=== PATIENT | male | born 1970 | race American Indian/Alaskan Native ===

== ENCOUNTER 2016-09-22 20:38 | Emergency (ER) | payer BC, OTHER ==
[2016-09-22 20:53] VITALS: BMI 31.1
[2016-09-22 20:56] VITALS: BP 136/81; PULSE 74; TEMP 98.2
--- NOTE | 2016-09-22 21:24 | ED PDOC ---
Arrival/HPI - General Historian: Patient <Akbar Trammellnay - Last Filed: 09/22/16 21:19> <Zuhair Bear - Last Filed: 09/22/16 23:20> - General Chief Complaint: ENT Problem Time Seen by Provider: 09/22/16 21:00 - History of Present Illness Narrative History of Present Illness (Text): 09/22/16 21:19 46yo M with no PMHx here for evaluation of sore throat. Patient states that he was fine last night when he went to sleep. Woke up at 3AM this morning with throat pain, worse with swallowing. He is able to speak in full clear sentences. States that he has never had similar symptoms in the past. Today, he has taken ibuprofen and Advil PM with no relief. Pain has been gradually getting worse over the duration of today. Denies F/C. No N/V/D. No abd pain. No headaches. Denies any chest pain, no shortness of breath. States that his has similar symptoms however, the symptoms are not as severe as his. PMHx: denies PSHx: denies Family Hx: denies Social Hx: Denies Tobacco use, denies illicit drugs. Social ETOH use. Works as a health safety engineer for the [employer] (Shaan Trammell) Past Medical History - Provider Review Nursing Documentation Reviewed: Yes - Infectious Disease Hx of Infectious Diseases: None - Psychiatric Hx Substance Use: No - Anesthesia Hx Anesthesia: No <Shaan Trammell - Last Filed: 09/22/16 21:19> Family/Social History - Physician Review Nursing Documentation Reviewed: Yes Family/Social History: No Known Family HX Smoking Status: Never Smoked Hx Alcohol Use: Yes Frequency of alcohol use: Socially Hx Substance Use: No <Shaan Trammell - Last Filed: 09/22/16 21:19> Allergies/Home Meds <Shaan Trammell - Last Filed: 09/22/16 21:19> <Zuhair Bear - Last Filed: 09/22/16 23:20> Allergies/Adverse Reactions: Allergies No Known Allergies Allergy (Verified 09/22/16 20:53) Review of Systems - Physician Review All systems were reviewed & negative as marked: Yes - Review of Systems Constitutional: absent: Fevers Respiratory: absent: SOB, Cough, Sputum, Wheezing <Shaan Trammell - Last Filed: 09/22/16 21:19> Physical Exam Vital Signs Reviewed: Yes Temperature: Afebrile Blood Pressure: Normal Pulse: Regular Respiratory Rate: Normal Appearance: Positive for: Well-Appearing Mental Status: Positive for: Alert and Oriented X 3 - Systems Exam Head: Present: Atraumatic, Normocephalic Extroacular Muscles: Present: EOMI Conjunctiva: Present: Normal Ears: Present: Normal, NORMAL TM, Normal Canal. No: Erythema Mouth: Present: Moist Mucous Membranes Pharnyx: Present: ERYTHEMA. No: EXUDATE, TONSILS ENLARGED, Peritonsilar Swelling, Uvular Deviation, Muffled/Hoarse Voice, Strider Nose (Internal): No: Normal Inspection Respiratory/Chest: Present: Clear to Auscultation, Good Air Exchange. No: Respiratory Distress, Accessory Muscle Use, Wheezes, Rhonchi Cardiovascular: Present: Normal S1, S2 Abdomen: No: Tenderness, Distention, Peritoneal Signs, Rebound, Guarding Upper Extremity: Present: Normal Inspection. No: Edema Lower Extremity: Present: Normal Inspection. No: Edema Neurological: Present: GCS=15 Skin: Present: Warm, Dry, Normal Color. No: Rashes Psychiatric: Present: Alert, Oriented x 3 <Akbar Trammellnay - Last Filed: 09/22/16 21:19> Medical Decision Making <Shaan Trammell - Last Filed: 09/22/16 21:19> <Zuhair Bear - Last Filed: 09/22/16 23:20> ED Course and Treatment: 09/22/16 21:27 46yo M with no PMHx here for Pharyngitis. Plan: - Decadron IM - Azithromax Rx - Dispo home (Shaan Trammell) Patient Seen With Resident: In agreement with resident note which contains more details about the patient. Patient was seen and evaluated with resident. Came up with plan and treatment together. Patient is a 46 year old male who presents to the emergency department for evaluation of sore throat discomfort. States he took Ibuprofen and Advil for minimal symptomatic relief. States he feels better post treatment in the emergency department. Patient stable for discharge home. Advised to present to emergency department for new/ worsening symptoms and follow up with pmd within few days. (Zuhair Bear) - Medication Orders Current Medication Orders: Discontinued Medications Azithromycin (Zithromax) 500 mg PO STAT STA PRN Reason: Protocol Stop: 09/22/16 21:30 Last Admin: 09/22/16 21:48 Dose: 500 mg Dexamethasone (Decadron Inj) 10 mg IM STAT STA Stop: 09/22/16 21:18 Last Admin: 09/22/16 21:48 Dose: 10 mg <Shaan Trammell - Last Filed: 09/22/16 21:19> - PA / FRUIT PRESERVER / Resident Statement / has reviewed & agrees with the documentation as recorded. / has examined the patient and agrees with the treatment plan. <Zuhair Bear - Last Filed: 09/22/16 23:20> - Scribe Statement Kelly Alarcon Provider Scribe Attestation: All medical record entries made by the Scribe were at my direction and personally dictated by me. I have reviewed the chart and agree that the record accurately reflects my personal performance of the history, physical exam, medical decision making, and the department course for this patient. I have also personally directed, reviewed, and agree with the discharge instructions and disposition. (Zuhair Bear) Disposition/Present on Arrival - Present on Arrival Any Indicators Present on Arrival: No History of DVT/PE: No History of Uncontrolled Diabetes: No Urinary Catheter: No History of Decub. Ulcer: No History Surgical Site Infection Following: None - Disposition Have Diagnosis and Disposition been Completed?: Yes Disposition Time: 21:28 Patient Plan: Discharge <Shaan Trammell - Last Filed: 09/22/16 21:19> <Zuhair Bear - Last Filed: 09/22/16 23:20> - Disposition Diagnosis: Pharyngitis Disposition: HOME/ ROUTINE Condition: GOOD Discharge Instructions (ExitCare): Pharyngitis (ED) Additional Instructions: 1. Follow up with your Primary Care Physician in 3 days 2. Take Antibiotics as directed to completion 3. Return to the Emergency Room with any concerning symptoms Prescriptions: Azithromycin [Zithromax] 250 mg PO DAILY #4 tab Referrals: PCP,NO [Primary Care Provider] - Follow up with primary Forms: [employer] ([place]ian)
[2016-09-22 21:49] VITALS: RESP 18; O2SAT 99
== END 2016-09-22 21:48 | disposition home or self-care (01) ==
LOC: ED 20:38 → MERGE 20:38 → ED 21:48
DX: J02.9 Acute pharyngitis, unspecified (principal)
CPT/HCPCS: 96372; 99282; J1100